=== PATIENT | male | born 1985 | race Caucasian/White ===

== ENCOUNTER 2018-03-11 11:50 | Emergency (ER) | payer OTHER ==
[~2018-03-11] VITALS: Ht 177.8 cm; Wt 81.8 kg
[2018-03-11] MEDS ORDERED: NS 1,000 ML IV ONE (15:00)
[2018-03-11] MEDS: GASTROGRAFIN SOLUTION 30ML PO SCH ×2 (15:14→15:45)
[2018-03-11 15:20] LABS: BASO # 0.1 10^3/uL (0.0-0.2); EOS # 0.2 10^3/uL (0.0-0.50); EOS % 2.9 % (0.0-3.0); HEMATOCRIT 40.6 % (42.0-52.0); HEMOGLOBIN 13.6 g/dl (13.5-17.5); LYMPH # 2.1 10^3/uL (1.5-4.5); LYMPH % 39.8 % (24.0-44.0); MEAN CORPUSCULAR HEMOGLOBIN 30.9 pg (27.0-33.0); MEAN CORPUSCULAR HGB CONC 33.5 g/dl (32.0-36.5); MEAN CORPUSCULAR VOLUME 92.3 fl (80.0-96.0); MONO # 0.3 10^3/uL (0.0-0.8); MONO % 6.5 % (0.0-5.0); NEUTROPHILS # 2.6 10^3/uL (1.8-7.7); NEUTROPHILS % 49.6 % (36.0-66.0); PLATELET COUNT, AUTOMATED 265 10^3/uL (150-450); WHITE BLOOD COUNT 5.3 10^3/uL (4.0-10.0)
[2018-03-11 15:52] LABS: ALBUMIN 3.9 GM/DL (3.2-5.2); ALT/SGPT 38 U/L (12-78); BILIRUBIN,DIRECT 0.1 MG/DL (0.0-0.2); BILIRUBIN,TOTAL 0.3 MG/DL (0.2-1.0); BLOOD UREA NITROGEN 16 MG/DL (7-18); C REACTIVE PROTEIN QUANTITATIV < 0.30 MG/DL (0.00-0.30); CALCIUM LEVEL 8.9 MG/DL (8.5-10.1); CARBON DIOXIDE LEVEL 28 MEQ/L (21-32); CHLORIDE LEVEL 105 MEQ/L (98-107); CREATININE FOR GFR 0.79 MG/DL (0.70-1.30); GLOMERULAR FILTRATION RATE > 60.0 (>60); GLUCOSE, FASTING 88 MG/DL (70-100); LIPASE 96 U/L (73-393); POTASSIUM SERUM 4.3 MEQ/L (3.5-5.1); SODIUM LEVEL 137 MEQ/L (136-145); TOTAL PROTEIN 7.5 GM/DL (6.4-8.2)
[2018-03-11] MEDS ORDERED: ISOVUE-370 76% 100ML VIAL (Q9967) As Ordered ONE (16:47)
--- NOTE | 2018-03-11 17:15 | REP ---
Clinical: Lower abdominal pain with rectal bleeding. Technique: Axial contrast enhanced images from the lung bases to the pubic symphysis using oral (per protocol) and 100 ml Isovue 370 intravenous contrast material with coronal and sagittal re-formations. Findings: Lung bases demonstrate a small incompletely evaluated area of infiltrate in the periphery of the left lower lobe. Liver, spleen, pancreas, gallbladder, bilateral adrenal glands and kidneys are normal. The enteric system is without obstruction or acute inflammatory process. Pelvis demonstrates normal bladder and age appropriate prostate/seminal vesicles. No ascites. No free air. No adenopathy. Abdominal aorta and vasculature normal. Musculoskeletal structures without focal osseous abnormality. Impression: 1. Subtle suspected infiltrate at the left lower lobe may represent acute pneumonia and requires correlation. 2. No acute abdominopelvic pathology appreciated. Specifically, normal appearance to the enteric system by noncontrast evaluation and no evidence for ascites, adenopathy or focal inflammatory stranding. Electronically Signed by Dave Sun MD 03/11/2018 05:07 P
[2018-03-11 17:21] LABS: ERYTHROCYTE SEDIMENTATION RATE 9 mm/hr (0-15)
[2018-03-11 17:45] VITALS: BP 116/60
--- NOTE | 2018-03-12 07:32 | ED PDOC ---
Post-Departure Follow-Up RADIOLOGY REPORT FAXED TO [facility] Kimmie Tafoya MD Mar 12, 2018 07:32
== END 2018-03-11 17:46 | disposition home or self-care (01) ==
LOC: M ED 11:50
DX: K64.8 Other hemorrhoids (principal); K92.1 Melena
CPT/HCPCS: 36415; 74177; 80048; 80076; 83690; 85025; 85652; 86140; 99284; Q9963; Q9967